=== PATIENT | female | born 1995 | race Caucasian/White ===

== ENCOUNTER 2018-07-05 18:42 | Emergency (ER) | payer SELFPAY ==
[2018-07-05 19:17] VITALS: BP 107/57
[2018-07-05 23:00] LABS: Bacteria,Urine 1+ /HPF (Negative); Bilirubin,Urine NEG (Negative); Blood,Urine SM (Negative); Calcium Oxalate Crystals,Urine 1+; Color,Urine Yellow (Yellow); Protein,Urine <15 mg/dL mg/dL (Negative); Urobilinogen,Urine < 2.0 mg/dL (<2.0)
[2018-07-05 23:19] LABS: HCG Qualitative,Urine Negative (Negative)
== END 2018-07-05 20:10 ==
LOC: ED 18:42
DX: R10.9 Unspecified abdominal pain (principal); Z53.21 Procedure and treatment not carried out due to patient leaving prior to being seen by health care provider
CPT/HCPCS: 81001; 81025

== ENCOUNTER 2019-04-05 12:05 | Emergency (ER) | payer OTHER ==
[2019-04-05 12:23] VITALS: BP 122/72
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
== END 2019-04-05 13:50 | disposition home or self-care (01) ==
LOC: ED 12:05
DX: S49.91XA Unspecified injury of right shoulder and upper arm, initial encounter (principal); F41.9 Anxiety disorder, unspecified; J45.909 Unspecified asthma, uncomplicated; Z98.890 Other specified postprocedural states; Z79.2 Long term (current) use of antibiotics; Z79.1 Long term (current) use of non-steroidal anti-inflammatories (NSAID); V49.49XA Driver injured in collision with other motor vehicles in traffic accident, initial encounter; Y93.89 Activity, other specified; Y92.410 Unspecified street and highway as the place of occurrence of the external cause; Y99.8 Other external cause status

== ENCOUNTER 2019-05-08 19:07 | Emergency (ER) | payer SELFPAY ==
[2019-05-08 19:16] VITALS: BP 121/70
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
[2019-05-08] MEDS ORDERED: IBUPROFEN PO ONE (20:47)
[2019-05-08] MEDS ORDERED: FLEXERIL PO ONE (20:47)
--- NOTE | 2019-05-08 20:48 | Emergency Department Report ---
ED Lower Extremity HPI - General Chief Complaint: Extremity Injury, Lower Stated Complaint: LEFT LEG PAIN Time Seen by Provider: 05/08/19 19:17 Source: patient Mode of arrival: Ambulatory Limitations: No Limitations - History of Present Illness Initial Comments: Patient is a 23-year-old -[place] female who presents for left anterior thigh pain x 2 days after running long distance pt denies fall injury or trauma pt states pain is 5/10 "sore" exacerbated by ambulation, there is no wound swelling abrasion or laceration or deformity . MD Complaint: thigh injury Onset/Timin -: days(s) Injury: Thigh: Left Type of Injury: hyperextension Place: home Severity: moderate Severity scale (0 -10): 4 Improves With: rest Worsens With: weight bearing, movement, palpation Context: running Associated Symptoms: snap/pop sensation, ambulatory - Related Data Previous Rx's Medication Instructions Recorded Last Taken Type Ibuprofen [Motrin] 800 mg PO Q8HR PRN #15 tablet 07/25/18 Unknown Rx cephALEXin [Keflex] 500 mg PO Q8HR 7 Days #21 cap 07/25/18 Unknown Rx Cyclobenzaprine HCl [Flexeril 5 MG 5 mg PO BID PRN #10 tab 04/05/19 Unknown Rx TAB] Naproxen [Naprosyn] 500 mg PO BID PRN #20 tablet 04/05/19 Unknown Rx Cyclobenzaprine [Flexeril] 10 mg PO TID PRN #30 tablet 05/08/19 Unknown Rx Menthol/Camphor [Nikolai Clarence 1 applicatio TP QID PRN #1 tube 05/08/19 Unknown Rx Ointment] Naproxen [Naprosyn TAB] 500 mg PO BID PRN #30 tablet 05/08/19 Unknown Rx Allergies Allergy/AdvReac Type Severity Reaction Status Date / Time No Known Allergies Allergy Verified 04/05/19 12:15 ED Review of Systems ROS: Stated complaint: LEFT LEG PAIN Other details as noted in HPI Constitutional: denies: chills, fever Eyes: denies: eye pain, eye discharge, vision change ENT: denies: ear pain, throat pain Respiratory: denies: cough, shortness of breath, wheezing Cardiovascular: denies: chest pain, palpitations Endocrine: no symptoms reported Gastrointestinal: denies: abdominal pain, nausea, diarrhea Genitourinary: denies: urgency, dysuria, discharge Musculoskeletal: other (left anterior thigh pain ) Skin: denies: rash, lesions Neurological: denies: headache, weakness, paresthesias Psychiatric: denies: anxiety, depression Hematological/Lymphatic: as per HPI ED Past Medical Hx - Past Medical History Hx Psychiatric Treatment: Yes (anxiety) Hx Asthma: Yes Additional medical history: vertigo - Surgical History Additional Surgical History: wisdom teeth x4 - Social History Smoking Status: Never Smoker Substance Use Type: Alcohol - Medications Home Medications: Home Medications Medication Instructions Recorded Confirmed Last Taken Type Ibuprofen [Motrin] 800 mg PO Q8HR PRN #15 tablet 07/25/18 Unknown Rx cephALEXin [Keflex] 500 mg PO Q8HR 7 Days #21 cap 07/25/18 Unknown Rx Cyclobenzaprine HCl [Flexeril 5 MG 5 mg PO BID PRN #10 tab 04/05/19 Unknown Rx TAB] Naproxen [Naprosyn] 500 mg PO BID PRN #20 tablet 04/05/19 Unknown Rx Cyclobenzaprine [Flexeril] 10 mg PO TID PRN #30 tablet 05/08/19 Unknown Rx Menthol/Camphor [Nikolai Clarence 1 applicatio TP QID PRN #1 tube 05/08/19 Unknown Rx Ointment] Naproxen [Naprosyn TAB] 500 mg PO BID PRN #30 tablet 05/08/19 Unknown Rx ED Physical Exam - General Limitations: No Limitations General appearance: alert, in no apparent distress - Head Head exam: Present: atraumatic (9%), normocephalic - Eye Eye exam: Present: normal appearance, PERRL, EOMI Pupils: Present: normal accommodation - ENT ENT exam: Present: mucous membranes moist - Neck Neck exam: Present: normal inspection ( is), full ROM. Absent: tenderness - Respiratory Respiratory exam: Present: normal lung sounds bilaterally. Absent: respiratory distress, wheezes, stridor, chest wall tenderness - Cardiovascular Cardiovascular Exam: Present: regular rate, normal rhythm, normal heart sounds. Absent: systolic murmur, diastolic murmur, rubs, gallop - GI/Abdominal GI/Abdominal exam: Present: soft, normal bowel sounds. Absent: distended, tenderness, bruit, hernia - Rectal Rectal exam: Present: deferred (right) - Extremities Exam Extremities exam: Present: full ROM, tenderness (left anterior thigh pain ), normal capillary refill. Absent: pedal edema, joint swelling, calf tenderness - Expanded Lower Extremity Exam Left Upper Leg exam: Present: full ROM, tenderness. Absent: swelling, abrasion, laceration, ecchymosis, deformity, crepidus, dislocation, erythema Knee exam: Present: normal inspection, full ROM. Absent: tenderness Lower Leg exam: Present: normal inspection, full ROM. Absent: tenderness Ankle exam: Present: normal inspection, full ROM. Absent: tenderness Foot/Toe exam: Present: normal inspection, full ROM. Absent: tenderness Neuro vascular tendon exam: Absent: pulse deficit, motor deficit, sensory deficit, tendon deficit Gait: Positive: observed and limited by pain - Back Exam Back exam: Present: normal inspection, full ROM. Absent: tenderness, CVA tenderness (R), CVA tenderness (L), muscle spasm, paraspinal tenderness, rash noted - Neurological Exam Neurological exam: Present: alert (emergency), oriented X3, CN II-XII intact, normal gait, reflexes normal. Absent: motor sensory deficit - Psychiatric Psychiatric exam: Present: normal affect, normal mood - Skin Skin exam: Present: warm, dry, intact, normal color. Absent: rash ED Course Vital Signs 05/08/19 05/08/19 05/08/19 19:13 19:16 21:18 Temperature 98.6 F 98.6 F Pulse Rate 102 H 102 H Respiratory 16 18 18 Rate Blood Pressure 121/70 121/70 O2 Sat by Pulse 99 99 Oximetry ED Lower Extremity MDM - Radiology Data Radiology results: report reviewed, image reviewed Ordering Physician: ANA GRIFFIN NP Date of Service: 05/08/19 Procedure(s): XR femur 2+V LT Accession Number(s): [id number] cc: ANA GRIFFIN NP Fluoro Time In Minutes: LEFT FEMUR, 4 VIEWS INDICATION / CLINICAL INFORMATION: LT FEMUR PAIN. COMPARISON: None available. FINDINGS: Along the anterior aspect of the distal femur, there is a small partially sclerotic bone lesion measuring 1.2 cm, located on the inner surface of the cortex.. There is questionable central lucency. This raises concern for the possibility of an osteoid osteoma. The remainder of the femur is intact and unremarkable. No fracture or dislocation. IMPRESSION: Benign-appearing bone lesion of the distal anterior femoral diaphysis, possibly representing an osteoid osteoma. This could be confirmed with CT scan or nuclear medicine bone scan, if clinically warranted. Signer Name: Marta Le MD Signed: 05/08/2019 9:50 PM Workstation Name: [id number] Transcribed By: Dictated By: Marta Le MD Electronically Authenticated By: Marta Le MD Signed Date/Time: 05/08/192149 DD/ 40 TD/TT: - Medical Decision Making pain is improved with medications given in ed , xray ? bone lesion, plan: nsaids muscle relaxants follow up with orthopedic in 2-3 days for evaluation for possible osteoma , pt verbalized agreement and understanding of same Critical care attestation.: If time is entered above; I have spent that time in minutes in the direct care of this critically ill patient, excluding procedure time. ED Disposition Clinical Impression: Bone lesion Muscle strain of left thigh Qualifiers: Encounter type: initial encounter Qualified Code(s): S76.912A - Strain of unspecified muscles, fascia and tendons at thigh level, left thigh, initial encounter Disposition: -01 TO HOME OR SELFCARE Is pt being admited?: No Does the pt Need Aspirin: No Condition: Stable Instructions: Muscle Strain (ED) Prescriptions: Cyclobenzaprine [Flexeril] 10 mg PO TID PRN #30 tablet PRN Reason: Muscle Spasm Naproxen [Naprosyn TAB] 500 mg PO BID PRN #30 tablet PRN Reason: pain Menthol/Camphor [Nikolai Clarence Ointment] 1 applicatio TP QID PRN #1 tube PRN Reason: Pain , Severe (7-10) Referrals: HALLIE WEI MD [Staff Physician] - 3-5 Days Forms: Work/School Release Form(ED) Time of Disposition: 22:24
--- NOTE | 2019-05-08 21:55 | XRay Report ---
LEFT FEMUR, 4 VIEWS INDICATION / CLINICAL INFORMATION: LT FEMUR PAIN. COMPARISON: None available. FINDINGS: Along the anterior aspect of the distal femur, there is a small partially sclerotic bone lesion measu ring 1.2 cm, located on the inner surface of the cortex.. There is questionable central lucency. This raises concern for the possibility of an osteoid osteoma. The remainder of the femur is intact and unremarkable. No fracture or dislocation. IMPRESSION: Benign-appearing bone lesion of the distal anterior femoral diaphysis, possibly represent ing an osteoid osteoma. This could be confirmed with CT scan or nuclear medicine bone scan, if clinic ally warranted. Signer Name: Marta Le MD Signed: 05/08/2019 9:50 PM Workstation Name: [id number]
== END 2019-05-08 22:30 | disposition home or self-care (01) ==
LOC: ED 19:07
DX: S76.912A Strain of unspecified muscles, fascia and tendons at thigh level, left thigh, initial encounter (principal); M89.9 Disorder of bone, unspecified; F41.9 Anxiety disorder, unspecified; J45.909 Unspecified asthma, uncomplicated; X58.XXXA Exposure to other specified factors, initial encounter; Y93.02 Activity, running; Y92.009 Unspecified place in unspecified non-institutional (private) residence as the place of occurrence of the external cause; Y99.8 Other external cause status